=== PATIENT | male | born 1955 | race Caucasian/White ===

== ENCOUNTER 2016-03-31 15:09 | Outpatient (CLI) | payer OTHER ==
[~2016-03-31 15:09] MED LIST: ALBUTEROL HFA60 DOSE IN; ASPIRIN EC LOW81 MG PO; DILT-XR240 MG PO; MINOCYCLINE HC100 MG PO; PRILOSEC20 MG PO; QVAR80 MCG IN
--- NOTE | 2016-03-31 15:37 | DIAGNOSTIC IMAGING REPORT ---
PROCEDURE: XR CHEST 2 VIEW INDICATION: PRE OP TECHNIQUE: PA and lateral views. COMPARISON: Chest 10/06/2014 FINDINGS: Lungs are clear. Heart and mediastinum are normal. Thorax is normal. IMPRESSION: 1. Negative chest.
== END 2016-03-31 23:00 ==
LOC: RT SRH 15:09
DX: Z01.818 Encounter for other preprocedural examination (principal); Z01.812 Encounter for preprocedural laboratory examination; Z01.810 Encounter for preprocedural cardiovascular examination
CPT/HCPCS: 90004; 90047; 90074; 91286; 94060; 95059

== ENCOUNTER 2016-04-01 10:55 | Inpatient (IN) | payer OTHER ==
[~2016-04-01] VITALS: Ht 172.7 cm; Wt 94.9 kg
--- NOTE | 2016-04-01 06:42 | HISTORY AND PHYSICAL ---
ADMITTED: 03/31/2016 CHIEF COMPLAINT: 1. Left knee pain. HISTORY OF PRESENT ILLNESS: The patient had arthritis of both knees, had a prior right knee replacement with an excellent result and would like to have his left knee replaced and is going to have that surgery done tomorrow barring unforeseen complication or problem. MEDICAL/SURGICAL HISTORY: The patient's past history is positive that does suffer from asthma, atrial fibrillation, heart failure, anxiety and depression. The patient' s past surgical history is positive for a right knee replacement. He has had also a tonsillectomy and previous colonoscopy. He has also had a history of Augmentin induced hepatitis and that resolved once he discontinued the medication. MEDICATIONS: 1. Omeprazole 40 mg a day. 2. Diltiazem 240 mg extended release daily. 3. Aspirin 81 mg a day, which I asked him to discontinue a couple days ago. 4. Minocycline 100 mg daily as needed for bronchitis, but he says that he has had 5. resolution of that problem and has not had any problem with bronchitis or congestion for a long time now. ALLERGIES: 1. SOCIAL HISTORY: Negative for any smoking or tobacco use. He does drink some coffee and some soda, but not on a daily basis. FAMILY HISTORY: Noncontributory. REVIEW OF SYSTEMS: Negative for any other constitutional problem. PHYSICAL EXAMINATION: VITAL SIGNS: His height is 5 feet 8 inches. He is 173 pounds. The most recent blood pressure is 126/76 with a heart rate of 78. HEENT: Normocephalic and atraumatic. Eyes are clear. His extraocular muscles are intact. Hearing is grossly normal. Mouth and posterior oropharynx are clear. Tongue midline. Teeth are in good repair. HEART: Regular rate and rhythm without murmur. LUNGS: Clear to auscultation. His knee and leg. EXTREMITIES: His knee and leg exam was deferred to previous clinic notes, but he does have crepitation with range of motion. There are no open wounds, erythema, warmth or drainage, indicating an inflammatory infectious process. IMPRESSION: 1. The analysis is that he has arthritis of the left knee PLAN: The plan will be for a knee replacement surgery. I discussed this with him at some length today and previously described the risks of infection, deep venous thrombosis, problems with healing, of stiffness, of continued pain, of failure and he understands the surgery is not guaranteed but likely he will have a good result with this surgery as well as needed with the first one and we will plan to proceed with the operation tomorrow barring unforeseen complication or problem.
--- NOTE | 2016-04-01 12:05 | NUR ---
PREOP INSTRUCTIONS GIVEN TO PATIENT. QUESTIONS ANSWERED. PATIENT VERBALIZES UNDERSTANDING. CONSENT CONFIRMED. EXTREMITY MARKED BY PATIENT. LENCHO COLLINS/LIONEL ON RLE. KB
--- NOTE | 2016-04-01 16:09 | Postoperative Progress Note ---
Postop Progress Note Preoperate Diagnosis: arthritis left knee Postoperative Diagnosis: same Surgeon: kiran Anesthesia: General ETT Findings: arthritis left knee Procedure: left knee replacement Complications? No Condition: Stable EBL: 300cc Blood Administered: 0 Specimen(s) removed? Yes Specimen removed/disposition: bone and tissue left knee Grafts or Implants? Yes Graft/Implant type: left knee replacement . (See nursing notes for details of grafts/implants)
--- NOTE | 2016-04-01 17:00 | DIAGNOSTIC IMAGING REPORT ---
PROCEDURE: XR KNEE 1 OR 2 VIEWS - left INDICATION: post-op left tka TECHNIQUE: Two-views COMPARISON: Bilateral knee films 12/06/2014 FINDINGS: The patient is status post a total knee replacement on the left The components are in good position. There is a drain in place. IMPRESSION: 1. Status post left total knee replacement
--- NOTE | 2016-04-01 17:14 | NUR ---
PRIOR TO DC FROM PACU TO ACUTE CARE PT IS AWAKE AND ALERT. PT DENIES [place]. PT STATES LEFT KNEE PAIN OF 2/10 ON A SCALE FROM 0-10. LEFT LEG IS ELEVATED ON A PILLOW PER MD ORDER. VSS. LEFT KNEE DRESSING IS CLEAN AND DRY. MD TALKED TO PT IN PACU. QUESTIONS ANSWERED. PT VERBALIZED UNDERSTANDING. REPORT GIVEN TO RN.
[2016-04-01 17:20] VITALS: BP 126/74
[2016-04-01 17:38] VITALS: BP 123/76
[2016-04-01 18:00] VITALS: BP 121/82
[2016-04-01 18:15] VITALS: BP 119/80
[2016-04-01 19:00] VITALS: BP 118/78
[2016-04-01 19:40] VITALS: BP 108/72
--- NOTE | 2016-04-01 20:28 | NUR ---
PT. UP TO FLOOR FROM PACU AT 1900, NAUSEAS - QUEEZE EAZE HELPING, GIVEN ZOFRAN WELL. LUNG SOUNDS SLIGHT EW LONNIE, DIMINISHED BILATERAL BASES. HR IRREGULAR. BY HYPOACTIVE. AT 1845 PATIENT HAD VEGETABLE BROTH AND TOLERATED WELL, DENIES NAUSEA. AT BED SIDE. WILL CONTINUE TO MONITOR.
--- NOTE | 2016-04-02 00:04 | NUR ---
PATIENT NAUSEA RESOLVED, HAS OLD WOUND TO FACE ON R CHEEK WHERE THERE WAS AN INGROWN HAIR, WAS SEEING MD AND TAKING PO ABX FOR THIS. PATIENT STATES MINIMAL PAIN, AND ONLY ON MOVEMENT.
[2016-04-02 01:01] VITALS: BP 108/74
[2016-04-02 03:58] VITALS: BP 110/74
--- NOTE | 2016-04-02 06:22 | NUR ---
VSS. A&OX4. SLEEPING BETWEEN CARE. DENIES PAIN. SCD'S ON. NO COMPLAINTS OR CONCERNS VOICED THIS SHIFT. CALL APPROPRIATELY. BED IN LOWEST POSITION. CALL LIGHT IN REACH. WCTM.
[2016-04-02 06:26] VITALS: BP 105/70
--- NOTE | 2016-04-02 10:26 | Progress Note ---
Subjective General VSS Afebrile WBC 12.7 Hgb 11.5 No c/o mild to moderate pain. Doing well with ambulation. Bandages clean and dry AROM 10-80 degrees. Wants to go home DC home.
[2016-04-02] MEDS ORDERED: OXYCODONE IR PO ×2 (10:28)
[2016-04-02] MEDS ORDERED: ROXICODONE5 MG PO ×2 (10:30)
--- NOTE | 2016-04-02 10:32 | Provider's Discharge Care Plan ---
Problem, Goal, Plan Problem List 1. Total knee replacement status 2. OA (osteoarthritis) of knee
--- NOTE | 2016-04-02 10:32 | Provider's Discharge Care Plan ---
Problem, Goal, Plan Problem List 1. Total knee replacement status 2. OA (osteoarthritis) of knee
[2016-04-02 10:34] VITALS: BP 104/70
--- NOTE | 2016-04-02 11:29 | OPERATIVE REPORT ---
DATE OF SURGERY: 04/01/2016 SURGEON: OSMAN SENA MD PREOPERATIVE DIAGNOSIS: 1. Arthritis of the left knee POSTOPERATIVE DIAGNOSIS: 1. Arthritis of the left knee PROCEDURE PERFORMED: 1. Operation proposed was left knee replacement and operation performed is left knee replacement ESTIMATED BLOOD LOSS: About 300 mL. COMPLICATIONS: None. PATHOLOGY SPECIMEN: Bone and tissue removed from the left knee. SURGICAL TECHNIQUE: The patient was taken to the operating room, where he was given a general anesthetic. He had his tourniquet applied to the left thigh. The leg was prepped and draped in the usual sterile fashion. We then made a longitudinal incision directly anteriorly over the knee, carried down through subcutaneous tissues. Standard medial parapatellar approach to the knee was performed and the patella dislocated to the lateral side. The infrapatellar fat pad was excised. The anterior cruciate ligament was excised. We used the custom cutting jig from the [employer] set to make the distal cut on the femur, and then used the standard cutting blocks to make the anterior and posterior and chamfer cuts. We then went back to the tibia, removed the menisci. The posterior cruciate ligament had to be completely excised; we needed to do a boxed posterior stabilized component , and that is what the [employer] people had. We exposed the tibia. We used the extramedullary guide and made a cut, cutting 10 mm of measured bone, 10 mm measured off both medial and lateral sides about the same. Once that was resected, then we sized the tibia; it was found to be #4 size. The drill hole was first made, and then the cutout for the stem and pins made with the special supplied chisel. We then went and cut the patella, resecting about 8 mm of bone from the patella. We sized it; it was a 35 mm size. The drill holes were made for the pins on the patellar component. We then put the trial component on, chamfered off the edges medial and lateral with the oscillating saw. We then did trial reduction with the trial tibia and femur, and with the trials in place, he was stable. He was a little tight in flexion with the 11 mm component. What we see is he is well balanced, and he could extend fully. So we took out the trial tibia and plastic insert and then put in the guide to make the box cutout for the femoral component, and using the special instruments from the [employer] set made the cutout for the box on the femoral component. At this point, we then exsanguinated the leg and inflated the tourniquet at 350 mmHg. We cleaned the cut surface of the bone with the pulse lavage unit, dried them thoroughly, and methylmethacrylate cement was vacuum mixed. Unfortunately, on the back table the patient placement coordinator was dropped on the floor, so we had to wait until we could round up another one and get some more cement for us, and we did. We made up another batch of cement, went through the cleaning and drying process again, put some cement on the back side of the tibial component, on the cut surface of the tibia, seated it down into place, and then put more cement on the back side of the femoral component and on the cut surface of the femur and seated it down in place, after removing extruded cement from around the margins of the tibia, and then removed the extruded cement from around the margins of the femur once it was seated in place. Then we put just a 9 mm insert in, held him in extension while the cement hardened, took the patellar, cleaned it up, dried it thoroughly , mixed up another batch of cement, put it on the patella on the backside of the patellar component, clamped it down into place, removed the extruded cement. We left the clamp in place until the cement hardened. Then we went through the trialing process. With a 10 mm insert, he was adequately stable through the full range of motion. We would get him back in flexion to at least 135 degrees. Could fully extend him easily. We got the 10 mm component and seated a 10 mm tibial insert into place without difficulty. The patellar tracking was adequate. The patellar thickness was measured and was 0.5 mm less than the [place] patella, but it was very close with the 7.5 mm thickness patellar component. We then closed the parapatellar retinaculum with a combination of interrupted and running #2 FiberWire suture and got a good solid, secure closure of the medial parapatellar retinaculum. We then deflated the tourniquet. There was no undue bleeding that was encountered. The subcutaneous layer was closed with 2-0 Vicryl running suture, the skin with 3-0 Vicryl subcuticular running suture, with the knee in flexion. He was then dressed with Xeroform and gauze and ABD pads, wrapped with sterile Webril and Jim bandage. He was then awakened and taken to the recovery room in stable condition. We did inject around the soft tissues proximal to the knee with a combination from the pharmacy, which included Decadron and local anesthetic, this to try and give some postoperative pain relief. The patient, at the conclusion of the procedure, again had excellent range of motion, with flexion back to 130 degrees, full extension easily possible without any effort at all, and patellar tracking was good. All appeared to be well.
--- NOTE | 2016-04-02 13:43 | NUR ---
PT. DISCHARGED HOME WITH ALL PERSONAL BELONGINGS, SIGNED RX AND DISCHARGE INFORMATION. PATIENT REPORTS NO FURTHER QUESTIONS AT THIS TIME. IV'S DC'D, DC TO HOME WITH VIA PRIVATE VEHICLE. ESCORTED OUT BY [employer] M[employer]ER OPERATOR.
== END 2016-04-02 13:47 | disposition home or self-care (01) | DRG 470 ==
LOC: SCU SRH 10:55 → U SRH 13:00 → ACUTE3 SRH 16:41
PROVIDERS: ADMIT Orthopaedic Surgery
PROC: 0SRD0J9 Replacement of Left Knee Joint with Synthetic Substitute, Cemented, Open Approach (ICD-10-PCS; principal; 2016-04-01 13:00)
DX: M17.12 Unilateral primary osteoarthritis, left knee (principal); Z96.651 Presence of right artificial knee joint; I48.91 Unspecified atrial fibrillation; I50.9 Heart failure, unspecified; F41.9 Anxiety disorder, unspecified; F32.9 Major depressive disorder, single episode, unspecified